=== PATIENT | male | born 1990 | race Caucasian/White ===

== ENCOUNTER 2024-04-09 17:20 | Emergency (ER) | payer SELFPAY ==
[2024-04-09 17:21] VITALS: BP 152/92; PULSE 66; RESP 18; TEMP 36.6; O2SAT 100; BMI 37.8
--- NOTE | 2024-04-09 18:01 | EX.ED.VIS.HA ---
HPI History of Present Illness Chief Complaint: Headache Informant: patient and parent Narrative Narrative: Here with parent nontraumatic migraine symptoms for past 3 days. States comes and goes. This morning came back worsening. Nausea no vomiting. Photophobia. He is from [facility] has been here for months. Had a flare 2 months ago than 2 weeks ago not seen. He takes medicine from [facility] called [facility]. Reviewing medication had caffeine and hydrochlorothiazide. He states not working. Is 1 pill left. No fevers. No increasing stressors. He is a diabetic. No cardiac history. Prior similar symptoms: Yes PFSH PFSH Medical History (Updated 04/09/24 @ 20:[address] Miguelangel Fountain DO) Migraines HTN (hypertension) Diabetes Allergy/AdvReac Type Severity Reaction Status Date / Time No Known Allergies Allergy Verified 04/09/24 17:21 Social History (Updated 04/09/24 @ 18:25 by Lesia Georges) household members: family Smoking Status: Never smoker ROS ROS ED Constitutional Constitutional ED: Denies chills, fever(s) or sweats Eyes Eyes: Reports other Details: Photophobia ENT ENT ED: Denies sore throat Cardiovascular Cardiovascular: Denies chest pain, leg edema, palpitations or racing heartbeat Respiratory/Chest Respiratory/Chest: Denies cough, dyspnea or dyspnea on exertion Gastrointestinal Gastrointestinal: Denies abdominal pain, diarrhea, nausea or vomiting Genitourinary Genitourinary ED: Denies dysuria, hematuria or urinary frequency Musculoskeletal Musculoskeletal: Denies back pain, extremity pain or neck pain Integumentary Denies rash or wounds Neurologic Neurologic: Reports headache(s); Denies paresthesias or weakness EXAM Physical Exam Const Vital Signs: 04/09/24 17:21 04/09/24 19:21 04/09/24 21:00 Temperature 98 F 98.2 F Temperature Source Temporal Pulse Rate 66 89 88 Respiratory Rate 18 16 16 Blood Pressure 152/92 H 140/78 H 139/77 H Blood Pressure Mean 112 98 97 Pulse Ox 100 99 100 Oxygen Delivery Method Room Air Room Air Positive well nourished and well developed General Appearance ED: well developed and NAD HEENT Reports moist mucous membranes normocephalic and atraumatic Eyes General Eye ED: Yes normal appearance of both eyes Neck full ROM and no meningeal signs Chest Wall Chest: Negative for tenderness Resp normal respiratory effort and normal air movement Effort and Inspection: symmetric chest movement; Negative for respiratory distress Cardio regular rate, regular rhythm and no murmurs Peripheral Pulses: pulses 2+ throughout GI normal to inspection, nondistended, normoactive bowel sounds and non-tender Palpation: Negative for guarding or rebound tenderness present Extremity normal to inspection General Extremety ED: Negative for edema or tenderness General Extremity: Negative for edema Neuro oriented x3, CN's II-XII intact bilaterally and no sensory deficits noted Sensorium / Orientation: awake and alert Skin no rashes or lesions noted and no wounds MDM MDM MDM Narrative Medical decision making narrative: Interventions / MDM: Differential diagnosis: Migraine headache Diagnosis considered but do not suspect: No clinical meningitis My EKG interpretation: N/A Imaging independently reviewed and interpreted by myself: N/A External documents reviewed: N/A Test considered but not ordered:N/A ED course: Patient is typical migraine headaches worsened today. No clinical meningitis. Has not been vomiting. Discussed using Imitrex subcu for which she agreed. Will reevaluate. 1904: Reports not much improvement with Imitrex. Will establish IV for migraine cocktail Reglan Benadryl and fluids. Reevaluation symptoms improved he felt much better. [place] They states they will follow-up with neurology when they get home. All questions were answered. Re-evaluation: stable Disposition discussed with patient/family/significant other: Patient and parents Case discussed with consulting clinician: N/A This note was generated with [employer] dictation software. It may contain incorrect words, spelling, and punctuation that were not noted in checking the note before signing. Discharge Plan Triage Chief Complaint: Headache ED Provider: Miguelangel Fountain Dx/Rx/DC Orders Clinical Impression: Headache, migraine Instructions: ED, Migraine (Classical) Primary Care Provider: Care Physician,No Primary Referrals: Care Physician,No Primary [Primary Care Provider] - Activity Restrictions/Additional Instructions: You had relief with Reglan and Benadryl IV. Print Language: German Disposition Disposition: Home, Self Care Discharge Date/Time: 04/09/24 21:02
[2024-04-09] MEDS: SUMAtriptan 6 MG/0.5 ML Vial SC (18:22)
[2024-04-09 19:21] VITALS: BP 140/78; PULSE 89; RESP 16; O2SAT 99
[2024-04-09] MEDS: Metoclopramide 10 MG/2 ML Vial IV (19:56)
[2024-04-09] MEDS: DiphenhydrAMINE 50 MG/ML Syringe 25 MG IV (19:56)
[2024-04-09] MEDS: 0.9% Normal Saline (1000mL) 1,000 ML 999 ML IV (19:57)
[2024-04-09 21:00] VITALS: BP 139/77; PULSE 88; RESP 16; TEMP 36.8; O2SAT 100
== END 2024-04-09 21:02 | disposition home or self-care (01) ==
PROVIDERS: Emergency Provider Emergency Medicine; Visit Provider Emergency Medicine
DX: G43.909 Migraine, unspecified, not intractable, without status migrainosus (principal); E11.9 Type 2 diabetes mellitus without complications; I10 Essential (primary) hypertension
CPT/HCPCS: 96361; 96372; 96374; 96375; 99282; J3030